=== PATIENT | female | born 1970 | race Caucasian/White ===

== ENCOUNTER 2018-10-08 13:46 | Emergency (ER) | payer MEDICARE, OTHER ==
[~2018-10-08] VITALS: Ht 152.4 cm; Wt 130.0 kg
[~2018-10-08 13:46] MED LIST: CARB200T PO; GABA300C PO
[2018-10-08 14:14] VITALS: BP 115/68
[2018-10-08 15:10] LABS: URINE HCG NEGATIVE (NEG)
[2018-10-08 15:13] LABS: CLARITY,URINE CLOUDY (Clear); COLOR,URINE YELLOW (Yellow); GLUCOSE, URINE NEGATIVE (Neg); KETONES,URINE NEGATIVE (Neg); LEUKOCYTE ESTERASE ,URINE NEGATIVE (Neg); NITRITES, URINE NEGATIVE (Neg); OCCULT BLOOD,URINE NEGATIVE (Neg); PROTEIN,URINE NEGATIVE (Neg)
[2018-10-08 15:17] LABS: UA COLLECTION TYPE CLN CATCH MIDSTREAM
[2018-10-08 15:18] LABS: BACTERIA,URINE FEW /HPF (Neg); CAL OXALATE CRYSTALS 1+ /HPF (NEGATIVE); COARSE GRANULAR CAST 0-3 /LPF (NEGATIVE); MUCUS STRANDS FEW /LPF (Neg); RBC,URINE NONE SEEN /HPF (0-2); SQUAMOUS EPITHELIAL CELL,UR FEW /LPF (FEW); WBC,URINE 0-4 /HPF (0-4)
[2018-10-08] MEDS ORDERED: azithromycin 250mg tablet PO ONE (15:40)
[2018-10-08] MEDS ORDERED: CefTRIAXone 250MG IM Kit w/LIDOcaine IM ONE (15:40)
[2018-10-08] MEDS ORDERED: METR70GE16 VG (16:47)
[2018-10-08] MEDS ORDERED: metroNIDAZOLE 500mg tablet PO ONE (16:50)
[2018-10-08] MEDS ORDERED: ondansetron 4mg rapidly disintigrating tab PO ONE (17:00)
== END 2018-10-08 17:15 | disposition home or self-care (01) ==
LOC: ER 13:46
DX: A64 Unspecified sexually transmitted disease (principal); N76.0 Acute vaginitis; Z79.899 Other long term (current) drug therapy
CPT/HCPCS: 36415; 81001; 81025; 87210; 87491; 87591; 96372; 99284; J0696; J3490